=== PATIENT | female | born 1990 | race Caucasian/White ===

== ENCOUNTER 2019-06-11 11:30 | Emergency (ER) | payer OTHER ==
[2019-06-11 11:47] VITALS: TEMP 98.3
[2019-06-11] MEDS ORDERED: KETOROLAC 30 MG/ML 1 ML VIAL IVP STA (12:31)
[2019-06-11] MEDS ORDERED: SODIUM CHLORIDE 0.9% 1,000 ML IV STA ×2 (12:31)
[2019-06-11] MEDS ORDERED: ONDANSETRON 4 MG/2 ML VIAL IVP STA (12:31)
[2019-06-11] MEDS ORDERED: PANTOPRAZOLE 40 MG/10 ML VIAL IVP STA (12:31)
[2019-06-11 12:55] LABS: Appearance,Urine Cloudy (Clear); Bacteria,Urine Moderate /hpf; Bilirubin,Urine Negative (Negative); Blood,Urine Trace (Negative); Color,Urine Light Yellow; Glucose,Urine (UA) Negative (Negative); Ketones,Urine Negative (Negative); Leukocyte Esterase,Urine Large (Negative); Mucus,Urine Rare /hpf; Nitrite,Urine Negative (Negative); Protein,Urine Negative (Negative); RBC,Urine 8 /hpf (0-5); Specific Gravity,Urine 1.014 (1.001-1.035); Squamous Epithelial Cell,Urine 2 /hpf (0-4); Urobilinogen,Urine <2.0 mg/dL (<2.0)
[2019-06-11 13:22] LABS: Basophils # (A) 0.3 k/uL (0-0.2); Basophils % (A) 1 %; Eosinophils # (A) 0.5 k/uL (0-0.7); Eosinophils % (A) 2 %; HGB 14.5 gm/dL (11.4-16.0); Lymphocytes % (A) 16 %; MCH 31.7 pg (25.0-35.0); MCV 95.9 fL (80.0-100.0); Mean Platelet Volume 7.7; Monocytes # (A) 0.8 k/uL (0-1.0); Monocytes % (A) 4 %; Neutrophils % (A) 75 %; Platelet Count 306 k/uL (150-450); RBC 4.59 m/uL (3.80-5.40); RDW 12.2 % (11.5-15.5); WBC 18.6 k/uL (3.8-10.6)
--- NOTE | 2019-06-11 13:23 | ED ---
Abdominal Pain HPI - General Chief Complaint: Abdominal Pain Stated Complaint: abd pain Time Seen by Provider: 06/11/19 11:50 Source: patient, RN notes reviewed, old records reviewed Mode of arrival: ambulatory Limitations: no limitations - History of Present Illness Initial Comments: This is a 28-year-old female, she presents emergency department today for evaluation for left-sided abdominal pain, and some flank pain, and episodes of dysuria starting today. She reports she's been having abdominal pain and stomach pains for the past 3 days. Patient states that she's had no known fevers or chills. She reports that history of extensive kidney problems and frequent urinary tract infections. Patient states that she's had no recent antibiotics. MD Complaint: abdominal pain - Related Data Previous Rx's Medication Instructions Recorded Cephalexin [Keflex] 500 mg PO Q6HR #40 cap 06/11/19 Allergies Allergy/AdvReac Type Severity Reaction Status Date / Time No Known Allergies Allergy Verified 06/11/19 11:55 Review of Systems ROS Statement: Those systems with pertinent positive or pertinent negative responses have been documented in the HPI. ROS Other: All systems not noted in ROS Statement are negative. Past Medical History Past Medical History: No Reported History History of Any Multi-Drug Resistant Organisms: None Reported Past Surgical History: Orthopedic Surgery Additional Past Surgical History / Comment(s): R wrist, and facial Past Psychological History: Anxiety, Depression, PTSD Smoking Status: Current every day smoker Past Alcohol Use History: Occasional Past Drug Use History: Marijuana General Exam - General Exam Comments Initial Comments: 28-year-old female. Alert and oriented. No distress. Limitations: no limitations General appearance: alert, in no apparent distress Head exam: Present: atraumatic, normocephalic, normal inspection Eye exam: Present: normal appearance, PERRL, EOMI. Absent: scleral icterus, conjunctival injection, periorbital swelling ENT exam: Present: normal exam, mucous membranes moist Neck exam: Present: normal inspection. Absent: tenderness, meningismus, lymphadenopathy Respiratory exam: Present: normal lung sounds bilaterally. Absent: respiratory distress, wheezes, rales, rhonchi, stridor Cardiovascular Exam: Present: regular rate, normal rhythm, normal heart sounds. Absent: systolic murmur, diastolic murmur, rubs, gallop, clicks GI/Abdominal exam: Present: soft, tenderness (Left lower quadrant tenderness. Left CVA tenderness.), normal bowel sounds. Absent: distended, guarding, rebound, rigid Back exam: Present: normal inspection Neurological exam: Present: alert Psychiatric exam: Present: normal affect, normal mood Course Vital Signs 06/11/19 06/11/19 11:43 14:30 Temperature 98.3 F Pulse Rate 89 84 Respiratory 18 16 Rate Blood Pressure 116/84 105/76 O2 Sat by Pulse 98 98 Oximetry Medical Decision Making - Medical Decision Making 28-year-old female presents emergency department today for evaluation with chief complaint of dysuria times and they also complain of some back and abdominal pain for the past 3 days. Patient does not have urinary tract infection. She reports had history of frequent urinary tract infections. CT on pelvis completed throat stone, pyelonephritis. She did have white blood cell count of 18,000. Kidney functions normal. 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 Discussed could be related to her frequent urinary tract infections. Patient was given 2 g of Rocephin and ER. Patient will be discharged with Keflex. - Lab Data Result diagrams: 06/11/19 13:05 06/11/19 13:05 Lab Results 06/11/19 06/11/19 06/11/19 Range/Units 12:18 12:18 13:05 WBC (3.8-10.6) k/uL RBC (3.80-5.40) m/uL Hgb (11.4-16.0) gm/dL Hct (34.0-46.0) % MCV (80.0-100.0) fL MCH (25.0-35.0) pg MCHC (31.0-37.0) g/dL RDW (11.5-15.5) % Plt Count (150-450) k/uL Neutrophils % % Lymphocytes % % Monocytes % % Eosinophils % % Basophils % % Neutrophils # (1.3-7.7) k/uL Lymphocytes # (1.0-4.8) k/uL Monocytes # (0-1.0) k/uL Eosinophils # (0-0.7) k/uL Basophils # (0-0.2) k/uL PT (9.0-12.0) sec INR (<1.2) APTT (22.0-30.0) sec Sodium 140 (137-145) mmol/L Potassium 4.1 (3.5-5.1) mmol/L Chloride 107 (98-107) mmol/L Carbon Dioxide 23 (22-30) mmol/L Anion Gap 10 mmol/L BUN 12 (7-17) mg/dL Creatinine 0.63 (0.52-1.04) mg/dL Est GFR (CKD-EPI)AfAm >90 (>60 ml/min/1.73 sqM) Est GFR (CKD-EPI)NonAf >90 (>60 ml/min/1.73 sqM) Glucose 87 (74-99) mg/dL Calcium 9.7 (8.4-10.2) mg/dL Total Bilirubin 0.6 (0.2-1.3) mg/dL AST 20 (14-36) U/L ALT 16 (9-52) U/L Alkaline Phosphatase 86 (38-126) U/L Total Protein 7.5 (6.3-8.2) g/dL Albumin 4.5 (3.5-5.0) g/dL Amylase 47 (30-110) U/L Lipase 116 (23-300) U/L Urine Color Light Yellow Urine Appearance Cloudy H (Clear) Urine pH 8.0 (5.0-8.0) Ur Specific [place] 1.014 (1.001-1.035) Urine Protein Negative (Negative) Urine Glucose (UA) Negative (Negative) Urine Ketones Negative (Negative) Urine Blood Trace H (Negative) Urine Nitrite Negative (Negative) Urine Bilirubin Negative (Negative) Urine Urobilinogen <2.0 (<2.0) mg/dL Ur Leukocyte Esterase Large H (Negative) Urine RBC 8 H (0-5) /hpf Urine WBC 107 H (0-5) /hpf Ur Squamous Epith Cells 2 (0-4) /hpf Urine Bacteria Moderate H (None) /hpf Urine Mucus Rare H (None) /hpf Urine HCG, Qual Not Detected (Not Detectd) 06/11/19 06/11/19 Range/Units 13:05 13:05 WBC 18.6 H (3.8-10.6) k/uL RBC 4.59 (3.80-5.40) m/uL Hgb 14.5 (11.4-16.0) gm/dL Hct 44.0 (34.0-46.0) % MCV 95.9 (80.0-100.0) fL MCH 31.7 (25.0-35.0) pg MCHC 33.0 (31.0-37.0) g/dL RDW 12.2 (11.5-15.5) % Plt Count 306 (150-450) k/uL Neutrophils % 75 % Lymphocytes % 16 % Monocytes % 4 % Eosinophils % 2 % Basophils % 1 % Neutrophils # 14.0 H (1.3-7.7) k/uL Lymphocytes # 3.0 (1.0-4.8) k/uL Monocytes # 0.8 (0-1.0) k/uL Eosinophils # 0.5 (0-0.7) k/uL Basophils # 0.3 H (0-0.2) k/uL PT 10.5 (9.0-12.0) sec INR 1.0 (<1.2) APTT 25.6 (22.0-30.0) sec Sodium (137-145) mmol/L Potassium (3.5-5.1) mmol/L Chloride (98-107) mmol/L Carbon Dioxide (22-30) mmol/L Anion Gap mmol/L BUN (7-17) mg/dL Creatinine (0.52-1.04) mg/dL Est GFR (CKD-EPI)AfAm (>60 ml/min/1.73 sqM) Est GFR (CKD-EPI)NonAf (>60 ml/min/1.73 sqM) Glucose (74-99) mg/dL Calcium (8.4-10.2) mg/dL Total Bilirubin (0.2-1.3) mg/dL AST (14-36) U/L ALT (9-52) U/L Alkaline Phosphatase (38-126) U/L Total Protein (6.3-8.2) g/dL Albumin (3.5-5.0) g/dL Amylase (30-110) U/L Lipase (23-300) U/L Urine Color Urine Appearance (Clear) Urine pH (5.0-8.0) Ur Specific [place] (1.001-1.035) Urine Protein (Negative) Urine Glucose (UA) (Negative) Urine Ketones (Negative) Urine Blood (Negative) Urine Nitrite (Negative) Urine Bilirubin (Negative) Urine Urobilinogen (<2.0) mg/dL Ur Leukocyte Esterase (Negative) Urine RBC (0-5) /hpf Urine WBC (0-5) /hpf Ur Squamous Epith Cells (0-4) /hpf Urine Bacteria (None) /hpf Urine Mucus (None) /hpf Urine HCG, Qual (Not Detectd) - Radiology Data Radiology results: report reviewed Nonspecific abdomen. CT abdomen and pelvis shows acute cystitis has they're mild to moderate comes and tripped wall thickening of the bladder. At least partially duplicated collecting systems bilaterally which may warrant further nonemergent clinical workup. Symmetric excretion is noted without hydronephrosis. Disposition Clinical Impression: UTI (urinary tract infection), Renal structural abnormality Disposition: HOME SELF-CARE Condition: Good Instructions (If sedation given, give patient instructions): Urinary Tract Infe ction in Women (ED) Additional Instructions: Please use medication as discussed. Please follow up with family doctor if symptoms have not improved over the next two days. Admitted following up with urology as well. Drink plenty of water. Please return to the emergency room if your symptoms increase or worsen or for any other concerns. Prescriptions: Cephalexin [Keflex] 500 mg PO Q6HR #40 cap Is patient prescribed a controlled substance at d/c from ED?: No Referrals: None,Stated [Primary Care Provider] - 1-2 days Berna Pan MD [REFERRING] - 1-2 days Mei Mullins MD [STAFF PHYSICIAN] - 1-2 days Roger Schilling MD [STAFF PHYSICIAN] - 1-2 days Time of Disposition: 16:19
[2019-06-11 13:31] LABS: ALT 16 U/L (9-52); AST 20 U/L (14-36); African American GFR (CKD) >90 (>60 ml/min/1.73 sqM); Albumin 4.5 g/dL (3.5-5.0); Alkaline Phosphatase 86 U/L (38-126); Amylase 47 U/L (30-110); Anion Gap 10 mmol/L; Blood Urea Nitrogen 12 mg/dL (7-17); Calcium 9.7 mg/dL (8.4-10.2); Carbon Dioxide 23 mmol/L (22-30); Chloride 107 mmol/L (98-107); Glucose 87 mg/dL (74-99); Potassium 4.1 mmol/L (3.5-5.1); Sodium 140 mmol/L (137-145); Total Bilirubin 0.6 mg/dL (0.2-1.3); Total Protein 7.5 g/dL (6.3-8.2)
[2019-06-11 13:40] LABS: Partial Thromboplastin Time 25.6 sec (22.0-30.0); Prothrombin Time 10.5 sec (9.0-12.0)
[2019-06-11] MEDS ORDERED: cefTRIAXone IN SWFI 1,000 MG/10 ML SYRINGE IVP STA (13:40)
--- NOTE | 2019-06-11 13:56 | XR ---
EXAMINATION TYPE: XR KUB DATE OF EXAM: 06/11/2019 COMPARISON: None INDICATION: Generalized abdominal pain nausea TECHNIQUE: Single view abdomen frontal upright view FINDINGS: Nonspecific bowel gas is present. An IUD is in the pelvis. Psoas margins are normal. No organomegaly is present. No free air is evident. No differential air-fluid levels are present. IMPRESSION: 1. Nonspecific abdomen
[2019-06-11] MEDS ORDERED: MORPHINE SULFATE 4 MG/ML SYRINGE IVP STA (14:12)
[2019-06-11 14:49] VITALS: RESP 16
--- NOTE | 2019-06-11 15:53 | CT ---
EXAMINATION TYPE: CT abdomen pelvis w con DATE OF EXAM: 06/11/2019 HISTORY: Generalized pain with painful urination CT DLP: 759mGycm Automated Exposure Control for Dose Reduction was Utilized. CONTRAST: CT scan of the abdomen and pelvis is performed without oral but with IV Contrast, patient injected wi th 100 mL of Isovue 300. COMPARISON: Abdominal x-ray earlier today FINDINGS: LUNG BASES: No significant abnormality is appreciated. LIVER/GB: No significant abnormality is appreciated. PANCREAS: No significant abnormality is seen. SPLEEN: No significant abnormality is seen. ADRENALS: No significant abnormality is seen. KIDNEYS: There is symmetric cortical medullary uptake and excretion from both kidneys without hydrone phrosis seen bilaterally. There are duplicated collecting systems and proximal ureters are identified bilaterally. Bladder is poorly distended with mild to moderate abnormal concentric wall thickening.. BOWEL: Evaluation bowel suboptimal secondary to lack of enteric contrast the patient had a little int ra-abdominal fat. No suspicious small or large bowel dilatation. Normal-appearing appendix in the rig ht upper pelvis is noted. Mild wall thickening in the sigmoid colon is nonspecific. UTERUS/ADNEXA: Metallic IUD centrally and retroverted uterus. Adjacent pelvic phleboliths are seen. LYMPH NODES: No greater than 1cm abdominal or pelvic lymph nodes are appreciated. OSSEOUS STRUCTURES: No significant abnormality is seen. OTHER: No significant additional abnormality is seen. IMPRESSION: 1. Acute cystitis suspected as there is mild to moderate concentric wall thickening of the bladder no paolo. There is at least partially duplicated collecting systems bilaterally which may warrant further nonemergent clinical workup. Symmetric excretion is noted without hydronephrosis seen bilaterally
[2019-06-11 16:30] VITALS: BP 103/79; PULSE 71
== END 2019-06-11 16:23 | disposition home or self-care (01) ==
LOC: EC 11:30
DX: N39.0 Urinary tract infection, site not specified (principal); N28.9 Disorder of kidney and ureter, unspecified; F17.200 Nicotine dependence, unspecified, uncomplicated
CPT/HCPCS: 36415; 80053; 82150; 83690; 85025; 85610; 85730; 81001; 81025; 87086; 74018; 74177; 99285; 96365; 96375 ×4; 96361 ×3; J2270; J2405; J0696; J1885; C9113; Q9967

== ENCOUNTER 2019-09-03 20:06 | Emergency (ER) | payer OTHER ==
[2019-09-03 20:12] VITALS: RESP 18
[2019-09-03] MEDS ORDERED: DICYCLOMINE 10 MG/ML 2 ML AMP IM STA (20:30)
[2019-09-03] MEDS ORDERED: KETOROLAC 30 MG/ML 1 ML VIAL IVP STA (20:30)
[2019-09-03] MEDS ORDERED: ONDANSETRON 4 MG/2 ML VIAL IVP STA (20:30)
[2019-09-03] MEDS ORDERED: SODIUM CHLORIDE 0.9% 1,000 ML IV STA (20:30)
[2019-09-03 20:51] LABS: Basophils % (A) 0 %; Eosinophils # (A) 0.4 k/uL (0-0.7); Eosinophils % (A) 3 %; HCT 44.8 % (34.0-46.0); HGB 15.5 gm/dL (11.4-16.0); Lymphocytes # (A) 1.4 k/uL (1.0-4.8); Lymphocytes % (A) 11 %; MCH 33.4 pg (25.0-35.0); MCHC 34.7 g/dL (31.0-37.0); MCV 96.3 fL (80.0-100.0); Mean Platelet Volume 8.2; Monocytes # (A) 0.5 k/uL (0-1.0); Monocytes % (A) 4 %; Neutrophils # (A) 10.3 k/uL (1.3-7.7); Neutrophils % (A) 82 %; Platelet Count 287 k/uL (150-450); RBC 4.65 m/uL (3.80-5.40); RDW 11.4 % (11.5-15.5); WBC 12.6 k/uL (3.8-10.6)
[2019-09-03 21:02] LABS: ALT 20 U/L (9-52); AST 20 U/L (14-36); African American GFR (CKD) >90 (>60 ml/min/1.73 sqM); Albumin 4.7 g/dL (3.5-5.0); Alkaline Phosphatase 71 U/L (38-126); Amylase 35 U/L (30-110); Anion Gap 11 mmol/L; Appearance,Urine Cloudy (Clear); Bacteria,Urine Rare /hpf; Bilirubin,Urine Negative (Negative); Blood Urea Nitrogen 19 mg/dL (7-17); Blood,Urine Small (Negative); Calcium 9.5 mg/dL (8.4-10.2); Carbon Dioxide 21 mmol/L (22-30); Chloride 105 mmol/L (98-107); Color,Urine Yellow; Glucose 94 mg/dL (74-99); Glucose,Urine (UA) Negative (Negative); Ketones,Urine 2+ (Negative); Leukocyte Esterase,Urine Negative (Negative); Mucus,Urine Many /hpf; Nitrite,Urine Negative (Negative); Non-African American GFR(CKD) >90 (>60 ml/min/1.73 sqM); PH, Urine 5.5 (5.0-8.0); Potassium 3.8 mmol/L (3.5-5.1); Protein,Urine Trace (Negative); RBC,Urine 10 /hpf (0-5); Sodium 137 mmol/L (137-145); Squamous Epithelial Cell,Urine 5 /hpf (0-4); Total Bilirubin 0.8 mg/dL (0.2-1.3); Total Protein 7.5 g/dL (6.3-8.2); Urobilinogen,Urine <2.0 mg/dL (<2.0)
--- NOTE | 2019-09-03 21:22 | XR ---
EXAMINATION TYPE: XR KUB DATE OF EXAM: 09/03/2019 COMPARISON: 06/11/2019 HISTORY: Back pain TECHNIQUE: 2 views FINDINGS: 2 views upright were obtained and show no sign of intestinal obstruction or pneumoperitoneu m. Fecal pattern is normal. Lung bases are clear. There are no pathologic calcifications. There is IU D noted. IMPRESSION: Nonacute abdomen. No change.
--- NOTE | 2019-09-03 21:32 | ED ---
Abdominal Pain HPI - General Chief Complaint: Abdominal Pain Stated Complaint: Abd Pain Time Seen by Provider: 09/03/19 20:14 Source: patient Mode of arrival: ambulatory Limitations: no limitations - History of Present Illness Initial Comments: 29-year-old female patient presents to the emergency department today for evaluation of abdominal pain. Patient states she is having upper abdominal pain mostly in the right upper quadrant which is sharp in nature. Patient denies any nausea or vomiting with this. Denies any constipation but states she has been having diarrhea. Patient is currently taking cefuroxime for urinary tract infection of which she was diagnosed with a week and a half ago. She denies any fever or chills. Denies any history of abdominal surgery. The patient does have an IUD in place. She denies any abnormal vaginal bleeding or discharge. Denies any pelvic pain. Denies concern for sexually transmitted infections. Patient denies any recent rash, shortness breath, chest pain, numbness, tingling, dizziness, weakness, hematuria, dysuria, urinary urgency, urinary frequency, headache, visual changes, or any other complaints. - Related Data Previous Rx's Medication Instructions Recorded Cephalexin [Keflex] 500 mg PO Q6HR #40 cap 06/11/19 Dicyclomine [Bentyl] 20 mg PO QID #12 tablet 09/03/19 Ondansetron [Zofran ODT] 4 mg PO Q8HR PRN #10 tab 09/03/19 Allergies Allergy/AdvReac Type Severity Reaction Status Date / Time No Known Allergies Allergy Verified 06/11/19 11:55 Review of Systems ROS Statement: Those systems with pertinent positive or pertinent negative responses have been documented in the HPI. ROS Other: All systems not noted in ROS Statement are negative. Past Medical History Past Medical History: No Reported History Additional Past Medical History / Comment(s): IUD History of Any Multi-Drug Resistant Organisms: None Reported Past Surgical History: Orthopedic Surgery Additional Past Surgical History / Comment(s): R wrist, and facial Past Psychological History: Anxiety, Depression, PTSD Smoking Status: Current every day smoker Past Alcohol Use History: Occasional Past Drug Use History: Marijuana General Exam Limitations: no limitations General appearance: alert, in no apparent distress, other (This is a well- developed, well-nourished adult female patient in no acute distress. Vital signs upon presentation are temperature 98.6F) Course Vital Signs 09/03/19 09/03/19 20:09 22:22 Temperature 98.6 F 98.2 F Pulse Rate 117 H 78 Respiratory 18 18 Rate Blood Pressure 89/58 108/69 O2 Sat by Pulse 100 99 Oximetry Medical Decision Making - Medical Decision Making 29-year-old female patient presents to the emergency department today for evaluation of upper abdominal pain mostly over the right upper quadrant. Phy sical examination did reveal mild upper abdominal tenderness. No CVA tenderness. Labs reviewed and are unremarkable. Urinalysis shows no evidence for infection. She is currently taking cefuroxime for UTI. She does have intermittent diarrhea. Upon re-evaluation she does report improved symptoms. We did discuss bowel cramping as a cause for her symptoms. We also discussed gallbladder dysfunction. She will be given prescriptions for zofran and bentyl. She is instructed follow up with her primary care physician for recheck in 1-2 days. She is urged to discuss HIDA scan. Return parameters discussed in detail. She verbalizes understanding and agrees with this plan. - Lab Data Result diagrams: 09/03/19 20:40 09/03/19 20:40 Lab Results 09/03/19 09/03/19 09/03/19 Range/Units 20:40 20:40 20:40 WBC 12.6 H (3.8-10.6) k/uL RBC 4.65 (3.80-5.40) m/uL Hgb 15.5 (11.4-16.0) gm/dL Hct 44.8 (34.0-46.0) % MCV 96.3 (80.0-100.0) fL MCH 33.4 (25.0-35.0) pg MCHC 34.7 (31.0-37.0) g/dL RDW 11.4 L (11.5-15.5) % Plt Count 287 (150-450) k/uL Neutrophils % 82 % Lymphocytes % 11 % Monocytes % 4 % Eosinophils % 3 % Basophils % 0 % Neutrophils # 10.3 H (1.3-7.7) k/uL Lymphocytes # 1.4 (1.0-4.8) k/uL Monocytes # 0.5 (0-1.0) k/uL Eosinophils # 0.4 (0-0.7) k/uL Basophils # 0.0 (0-0.2) k/uL Sodium 137 (137-145) mmol/L Potassium 3.8 (3.5-5.1) mmol/L Chloride 105 (98-107) mmol/L Carbon Dioxide 21 L (22-30) mmol/L Anion Gap 11 mmol/L BUN 19 H (7-17) mg/dL Creatinine 0.57 (0.52-1.04) mg/dL Est GFR (CKD-EPI)AfAm >90 (>60 ml/min/1.73 sqM) Est GFR (CKD-EPI)NonAf >90 (>60 ml/min/1.73 sqM) Glucose 94 (74-99) mg/dL Plasma Lactic Acid Brant (0.7-2.0) mmol/L Calcium 9.5 (8.4-10.2) mg/dL Total Bilirubin 0.8 (0.2-1.3) mg/dL AST 20 (14-36) U/L ALT 20 (9-52) U/L Alkaline Phosphatase 71 (38-126) U/L Total Protein 7.5 (6.3-8.2) g/dL Albumin 4.7 (3.5-5.0) g/dL Amylase 35 (30-110) U/L Lipase 91 (23-300) U/L Urine Color Urine Appearance (Clear) Urine pH (5.0-8.0) Ur Specific [place] (1.001-1.035) Urine Protein (Negative) Urine Glucose (UA) (Negative) Urine Ketones (Negative) Urine Blood (Negative) Urine Nitrite (Negative) Urine Bilirubin (Negative) Urine Urobilinogen (<2.0) mg/dL Ur Leukocyte Esterase (Negative) Urine RBC (0-5) /hpf Urine WBC (0-5) /hpf Ur Squamous Epith Cells (0-4) /hpf Urine Bacteria (None) /hpf Urine Mucus (None) /hpf Urine HCG, Qual Not Detected (Not Detectd) 09/03/19 09/03/19 Range/Units 20:40 20:40 WBC (3.8-10.6) k/uL RBC (3.80-5.40) m/uL Hgb (11.4-16.0) gm/dL Hct (34.0-46.0) % MCV (80.0-100.0) fL MCH (25.0-35.0) pg MCHC (31.0-37.0) g/dL RDW (11.5-15.5) % Plt Count (150-450) k/uL Neutrophils % % Lymphocytes % % Monocytes % % Eosinophils % % Basophils % % Neutrophils # (1.3-7.7) k/uL Lymphocytes # (1.0-4.8) k/uL Monocytes # (0-1.0) k/uL Eosinophils # (0-0.7) k/uL Basophils # (0-0.2) k/uL Sodium (137-145) mmol/L Potassium (3.5-5.1) mmol/L Chloride (98-107) mmol/L Carbon Dioxide (22-30) mmol/L Anion Gap mmol/L BUN (7-17) mg/dL Creatinine (0.52-1.04) mg/dL Est GFR (CKD-EPI)AfAm (>60 ml/min/1.73 sqM) Est GFR (CKD-EPI)NonAf (>60 ml/min/1.73 sqM) Glucose (74-99) mg/dL Plasma Lactic Acid Brant 0.7 (0.7-2.0) mmol/L Calcium (8.4-10.2) mg/dL Total Bilirubin (0.2-1.3) mg/dL AST (14-36) U/L ALT (9-52) U/L Alkaline Phosphatase (38-126) U/L Total Protein (6.3-8.2) g/dL Albumin (3.5-5.0) g/dL Amylase (30-110) U/L Lipase (23-300) U/L Urine Color Yellow Urine Appearance Cloudy H (Clear) Urine pH 5.5 (5.0-8.0) Ur Specific [place] 1.030 (1.001-1.035) Urine Protein Trace H (Negative) Urine Glucose (UA) Negative (Negative) Urine Ketones 2+ H (Negative) Urine Blood Small H (Negative) Urine Nitrite Negative (Negative) Urine Bilirubin Negative (Negative) Urine Urobilinogen <2.0 (<2.0) mg/dL Ur Leukocyte Esterase Negative (Negative) Urine RBC 10 H (0-5) /hpf Urine WBC 2 (0-5) /hpf Ur Squamous Epith Cells 5 H (0-4) /hpf Urine Bacteria Rare H (None) /hpf Urine Mucus Many H (None) /hpf Urine HCG, Qual (Not Detectd) - Radiology Data Radiology results: report reviewed, image reviewed 2 views of the abdomen are obtained. Report was reviewed in its entirety. Impression by Dr. Andrew shows nonacute abdomen. No change. Disposition Clinical Impression: Abdominal pain Disposition: HOME SELF-CARE Condition: Good Instructions (If sedation given, give patient instructions): Abdominal Pain (ED) Additional Instructions: Take medications as directed. Follow-up with your primary care physician for recheck in 1-2 days, discuss HIDA scan. Return to the emergency department immediately for any new, worsening, or concerning symptoms Prescriptions: Dicyclomine [Bentyl] 20 mg PO QID #12 tablet Ondansetron [Zofran ODT] 4 mg PO Q8HR PRN #10 tab PRN Reason: Nausea Is patient prescribed a controlled substance at d/c from ED?: No Referrals: Gianni Bran DO [STAFF PHYSICIAN] - 1-2 days Time of Disposition: 22:34
[2019-09-03 22:23] VITALS: BP 108/69; PULSE 78; TEMP 98.2
[2019-09-03] MEDS ORDERED: ONDANSETRON 4 MG ODT STARTER PACK 2 TAB BTL PO STA (22:32)
== END 2019-09-03 22:38 | disposition home or self-care (01) ==
LOC: EC 20:06
DX: R10.11 Right upper quadrant pain (principal); R19.7 Diarrhea, unspecified; R10.811 Right upper quadrant abdominal tenderness; N39.0 Urinary tract infection, site not specified; F17.200 Nicotine dependence, unspecified, uncomplicated; Z97.5 Presence of (intrauterine) contraceptive device
CPT/HCPCS: 36415; 80053; 82150; 83605; 83690; 85025; 81001; 81025; 74018; 99284; 96374; 96375; 96361 ×2; 96372; J0500; J2405; J1885; S0119

== ENCOUNTER → 2019-10-20 | Outpatient (CLI) | payer OTHER ==
[2019-10-20 16:03] LABS: Basophils # (A) 0.1 k/uL (0-0.2); Basophils % (A) 1 %; Eosinophils # (A) 0.4 k/uL (0-0.7); Eosinophils % (A) 4 %; HCT 44.9 % (34.0-46.0); HGB 14.4 gm/dL (11.4-16.0); Lymphocytes # (A) 3.3 k/uL (1.0-4.8); Lymphocytes % (A) 31 %; MCH 31.9 pg (25.0-35.0); MCHC 32.1 g/dL (31.0-37.0); MCV 99.4 fL (80.0-100.0); Mean Platelet Volume 7.8; Monocytes # (A) 0.6 k/uL (0-1.0); Monocytes % (A) 5 %; Neutrophils # (A) 5.9 k/uL (1.3-7.7); Neutrophils % (A) 57 %; Platelet Count 271 k/uL (150-450); RBC 4.51 m/uL (3.80-5.40); RDW 11.7 % (11.5-15.5); WBC 10.5 k/uL (3.8-10.6)
[2019-10-20 16:09] LABS: Amorphous Sediment,Urine Rare /hpf; Appearance,Urine Turbid (Clear); Bacteria,Urine Occasional /hpf; Bilirubin,Urine Negative (Negative); Blood,Urine Trace (Negative); Color,Urine Yellow; Glucose,Urine (UA) Negative (Negative); Ketones,Urine Negative (Negative); Leukocyte Esterase,Urine Negative (Negative); Mucus,Urine Few /hpf; Nitrite,Urine Negative (Negative); PH, Urine 6.5 (5.0-8.0); Protein,Urine Trace (Negative); RBC,Urine 4 /hpf (0-5); Specific Gravity,Urine 1.021 (1.001-1.035); Squamous Epithelial Cell,Urine 7 /hpf (0-4); Urobilinogen,Urine <2.0 mg/dL (<2.0)
[2019-10-20 23:24] LABS: African American GFR (CKD) 140.8 (60.0-200.0); Anion Gap 5.5 mmol/L (4.00-12.00); BUN/Creat Ratio 23.33 Ratio (12.00-20.00); Calcium 9.1 mg/dL (8.7-10.3); Carbon Dioxide 26.5 mmol/L (21.6-31.8); Non-African American GFR(CKD) 121.5 (60.0-200.0); Potassium 4.1 mmol/L (3.5-5.5)
== END | disposition home or self-care (01) ==
LOC: LABWHC1 15:17
PROVIDERS: ATTEND Urology
DX: N39.0 Urinary tract infection, site not specified (principal); R31.21 Asymptomatic microscopic hematuria
CPT/HCPCS: 36415; 80048; 81001; 85025

== ENCOUNTER 2021-11-29 06:21 | Day surgery (SDC) | payer OTHER ==
[2021-11-25 11:51] VITALS: BMI 25.0
--- NOTE | 2021-11-28 17:42 | P.HPOB ---
History of Present Illness H&P Date: 11/28/21 Chief Complaint: Family planning This is a 31 y.o. female, 3, para 2, who presents for laparoscopic bilateral tubal ligation via fulgaration and removal of Mirena IUD for family planning. She sometimes feels her IUD strings and is done having children. OB Hx: . History of 1 section, 1 vaginal delivery and 1 miscarriage. Material Liaison Hx: No history of STDs Social Hx: Single. Unemployed. Review of Systems Constitutional: Reports fatigue, Reports weight gain, Denies chills, Denies fever Eyes: denies blurred vision, denies pain Ears, nose, mouth and throat: Denies headache, Denies sore throat Cardiovascular: Denies chest pain, Denies shortness of breath Respiratory: Denies cough Gastrointestinal: Denies abdominal pain, Denies diarrhea, Denies nausea, Denies vomiting Genitourinary: Reports dyspareunia, Reports pelvic pain, Denies dysuria, Denies hematuria Menstruation: Reports menses 1-7 days, Reports period light Musculoskeletal: Reports low back pain Integumentary: Denies pruritus, Denies rash Neurological: Denies numbness, Denies weakness Psychiatric: Reports anxiety, Reports depression, Reports difficulty concentrating, Reports irritability Past Medical History Past Medical History: No Reported History Additional Past Medical History / Comment(s): Interstitial cystitis History of Any Multi-Drug Resistant Organisms: None Reported Past Surgical History: Bladder Surgery (cystoscopy), Section, Orth opedic Surgery Additional Past Surgical History / Comment(s): R wrist, facial OR Past Anesthesia/Blood Transfusion Reactions: No Reported Reaction Past Psychological History: Anxiety, Depression, PTSD Smoking Status: Current every day smoker Past Alcohol Use History: Occasional Past Drug Use History: Marijuana - Past Family History Mother Family Medical History: Cancer (Renal cell) Medications and Allergies Home Medications Medication Instructions Recorded Confirmed Type No Known Home Medications 11/25/21 11/29/21 History Allergies Allergy/AdvReac Type Severity Reaction Status Date / Time No Known Allergies Allergy Verified 11/29/21 06:46 Exam Osteopathic Statement: *. No significant issues noted on an osteopathic structural exam other than those noted in the History and Physical/Consult. HEENT: within normal limits Heart: regular rate and rhythm Lungs: clear to auscultation bilaterally Abdomen: soft, non-tender Pelvic: uterus small, anteverted, non-tender, with no adnexal masses or tenderness. Cervix: IUD strings visible. Extremities: negative Mohan's. Assessment and Plan (1) Family planning Current Visit: No Status: Acute Code(s): Z30.09 - ENCOUNTER FOR OT GENERAL CNSL AND ADVICE ON CONTRACEPTION SNOMED Code(s): 580581457 Plan: Proceed with laparoscopic bilateral tubal ligation via fulgaration and removal of intrauterine device. I have discussed the risks, benefits, and alternative therapies for the above- mentioned procedure and for both sedation/anesthesia as well as necessary blood products administration, if indicated, as they pertain to this patient. The patient has indicated her understanding and acceptance of the risks and procedures discussed.
[~2021-11-29 06:21] MED LIST: DEXAMETHASONE SOD PHOSPHATE 4 MG/ML 1 ML VIAL IV ONE; LACTATED RINGERS 1,000 ML IV SCH; LIDOCAINE 1% (10MG/ML) FOR IV START INTRADERMA PRN; ONDANSETRON 4 MG/2 ML VIAL IVP ONE; Pre Op ABX Message 1 EACH MISC MISCELLANE ONE; SCOPOLAMINE 1.5MG/72HR PATCH TRANSDERM ONE
[2021-11-29] MEDS ORDERED: KETOROLAC 15 MG/ML 1 ML VIAL ONE (07:24)
[2021-11-29] MEDS ORDERED: LIDOCAINE 1% INJ 10MG/ML (20 ML MDV) ONE (07:24)
[2021-11-29] MEDS ORDERED: fentaNYL (PF) 50 MCG/ML 2 ML AMP ONE (07:24)
[2021-11-29] MEDS ORDERED: SUCCINYLCHOLINE CHLORIDE 100 MG/5 ML SYR IV ONE (07:24)
[2021-11-29] MEDS ORDERED: PROPOFOL 10 MG/ML 20 ML VIAL IV ONE (07:24)
[2021-11-29] MEDS ORDERED: MIDAZOLAM 2 MG/2 ML VIAL ONE (07:24)
[2021-11-29] MEDS ORDERED: HYDROmorphone (PF) 1 MG/ML ONE (07:24)
[2021-11-29] MEDS ORDERED: BUPIVACAINE (PF) 0.25% 30 ML VIAL SQ ONE ×3 (07:55→08:00)
[2021-11-29] MEDS ORDERED: LACTATED RINGERS 1,000 ML IV ONE ×2 (08:02→09:12)
--- NOTE | 2021-11-29 08:17 | P.OP ---
Date of Procedure: 11/29/21 Preoperative Diagnosis: Family planning Postoperative Diagnosis: Same Procedure(s) Performed: Laparoscopic bilateral tubal ligation via fulguration Removal of ParaGard IUD Anesthesia: PHOEBE Surgeon: Mary Lou Mace Estimated Blood Loss (ml): 20 Pathology: none sent Condition: stable Disposition: same day Indications for Procedure: This is a 31 y.o. female, 3, para 2, who presents for laparoscopic bilateral tubal ligation via fulgaration and removal of Mirena IUD for family planning. She sometimes feels her IUD strings and is done having children. Operative Findings: Uterus is retroverted, sounded to 6-1/2 cm. The uterus tubes and ovaries are noted. Appendix is visualized and appears normal Description of Procedure: The patient is taken to the operating room where she is placed in the dorsal lithotomy position. She is prepped and draped in the normal sterile fashion. Examination is performed under anesthesia. Uterus is found to be in a anteverted position. No adnexal masses were palpated. Next a bivalve speculum was placed in the patient's vagina. A single-tooth tenaculum was used to grasp the anterior lip of the cervix. A ring forcep was used to grasp the IUD and completely remove it intact. It appears to be a ParaGard IUD. The uterus was sounded to 6.5 cm. The kroner uterine manipulator was then inserted through the cervix and the balloon was inflated. The single-tooth tenaculum is removed speculum was removed gloves were changed and attention was turned to the abdomen. A small stab incision was made with a scalpel in the infraumbilical fold. A 5 mm disposable bladeless trocar was then inserted into the peritoneal cavity under direct visualization lifting the lower abdomen at the same time. Once inside, pneumoperitoneum was achieved with CO2 gas. The insert was removed and the camera was placed. Intraperitoneal placement was confirmed. No bleeding was noted. Next the patient was placed in Trendelenburg position. A small stab incision was made suprapubically and a 5 mm disposable bladed trocar was inserted into the peritoneal cavity under direct visualization. Once inside pelvic contents were inspected. Next a bipolar Kleppinger instrument was placed through the inferior trocar and the midportion of each tube was brought away from other structures and completely fulgurated on approximate 2-3 cm segment of each tube. Excellent hemostasis was noted. Pictures were taken. Pneumoperitoneum was released after the inferior trocar was removed under direct visualization. The upper trocar was then removed. The skin incisions were then closed with 4-0 Vicryl suture in a subcuticular fashion. Incisions were then injected with quarter percent Marcaine. Approximately 7 mL were used. Next the kroner uterine manipulator was removed. A ring forcep was applied to the tenaculum site due to some oozing. The tenaculum was removed, no active bleeding noted. All sponge and needle counts are correct. The patient is then taken to recovery room in stable condition.
[2021-11-29 08:36] VITALS: TEMP 97.7
[2021-11-29] MEDS: HYDROmorphone 0.5 MG/0.5 ML SYRINGE IVP PRN ×3 (08:43→09:11)
[2021-11-29] MEDS ORDERED: HYDROcodone/APAP 5-325MG 1 EACH TAB ONE (09:29)
[2021-11-29] MEDS ORDERED: HYDROcodone/APAP 5-325MG 1 EACH TAB PO ONE (09:32)
[2021-11-29 09:36] VITALS: RESP 16
[2021-11-29 09:57] VITALS: BP 121/79; PULSE 77
== END 2021-11-29 10:23 | disposition home or self-care (01) ==
LOC: OR 06:21
PROVIDERS: ATTEND Obstetrics & Gynecology
DX: Z30.2 Encounter for sterilization (principal); F17.200 Nicotine dependence, unspecified, uncomplicated; F41.9 Anxiety disorder, unspecified; F32.A Depression, unspecified; F43.10 Post-traumatic stress disorder, unspecified
CPT/HCPCS: 58600; 81025; J2250; J1100; J2405; J2001; J3010; J1170 ×2; J1885; J0330; J2704